=== PATIENT | female | born 1980 | race Two or more races ===

== ENCOUNTER 2018-10-15 03:34 | Emergency (ER) | payer BC, MEDICAID ==
[2018-10-15] MEDS ORDERED: Ketorolac 10 MG Tab PO ONE (04:24)
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
--- NOTE | 2018-10-15 04:35 | CRLCR ---
Indication: Knee injury Technique: Right knee 3 views Comparison: None Findings: Bones: No clear fracture with 1 millimeter ossification near the fibular tip. This appears well corticated. Joint spaces: Small knee effusion. Soft tissues: Unremarkable. Impression: Small knee effusion without definite fracture or dislocation. Dictated by Humberto Park MD @ Oct 15 2018 4:30AM Signed by Dr. Humberto Park @ Oct 15 2018 4:33AM
== END 2018-10-15 04:33 | disposition home or self-care (01) ==
LOC: JP.ED 03:34
DX: S83.91XA Sprain of unspecified site of right knee, initial encounter (principal); F17.210 Nicotine dependence, cigarettes, uncomplicated; W50.0XXA Accidental hit or strike by another person, initial encounter
CPT/HCPCS: 73562; 99283; A9270